=== PATIENT | female | born 1940 | race Two or more races ===

== ENCOUNTER 2020-08-05 08:11 | Emergency (ER) | payer OTHER ==
[~2020-08-05] VITALS: Ht 162.6 cm; Wt 90.7 kg
[2020-08-05] MEDS ORDERED: SYNTHROID137 MCG PO (08:33)
[2020-08-05] MEDS ORDERED: TRIBENZOR 40-51 EACH PO (08:34)
[2020-08-05] MEDS ORDERED: HYDROCHLOROTH12.5 MG PO (08:35)
[2020-08-05] MEDS ORDERED: ACETAMINOPHEN650 M2 PO (20:19)
== END 2020-08-05 20:30 | disposition home or self-care (01) ==
LOC: ER 08:11
DX: N39.0 Urinary tract infection, site not specified (principal); R31.29 Other microscopic hematuria; R82.71 Bacteriuria; D72.828 Other elevated white blood cell count; K80.80 Other cholelithiasis without obstruction; K76.0 Fatty (change of) liver, not elsewhere classified; R42 Dizziness and giddiness; M62.81 Muscle weakness (generalized); Z03.818 Encounter for observation for suspected exposure to other biological agents ruled out

== ENCOUNTER 2020-09-04 08:28 | Outpatient (CLI) | payer OTHER ==
[~2020-09-04 08:28] MED LIST: ACETAMINOPHEN650 M2 PO; HYDROCHLOROTH12.5 MG PO; SYNTHROID137 MCG PO; TRIBENZOR 40-51 EACH PO
== END 2020-09-04 09:29 | disposition home or self-care (01) ==
LOC: TOM 08:28
PROVIDERS: ATTEND Colon & Rectal Surgery
DX: Q61.8 Other cystic kidney diseases (principal); K80.80 Other cholelithiasis without obstruction
CPT/HCPCS: 74177; Q9965

== ENCOUNTER 2020-09-11 09:56 | Outpatient (CLI) | payer OTHER | END 2020-09-11 10:02 | disposition home or self-care (01) | LOC: NUCLEAR 09:56 | PROVIDERS: ATTEND Colon & Rectal Surgery | DX: I87.003 Postthrombotic syndrome without complications of bilateral lower extremity (principal); K81.9 Cholecystitis, unspecified; I73.9 Peripheral vascular disease, unspecified | CPT/HCPCS: 78227; 93922; 93925; A9537; J2805 ==

== ENCOUNTER 2020-09-16 11:14 | Outpatient (CLI) | payer OTHER | END 2020-09-16 15:31 | disposition home or self-care (01) | LOC: NUCLEAR 11:14 | PROVIDERS: ATTEND Colon & Rectal Surgery | DX: I87.2 Venous insufficiency (chronic) (peripheral) (principal) ==

== ENCOUNTER 2022-03-07 18:33 | Inpatient (IN) | payer OTHER ==
[~2022-03-07] VITALS: Ht 162.6 cm; Wt 90.7 kg
[2022-03-09] MEDS ORDERED: MEMANTINE HCL5 MG (08:36)
[2022-03-09] MEDS ORDERED: MONTELUKAST SOD10 MG (08:36)
[2022-03-09] MEDS ORDERED: ROSUVASTATIN CAL5 MG (08:37)
[2022-03-09] MEDS ORDERED: DOXAZOSIN MESYLA4 MG (08:37)
[2022-03-09] MEDS ORDERED: LOSARTAN POTASS50 MG (08:37)
[2022-03-09] MEDS ORDERED: OXYBUTYNIN CHLOR5 MG (08:37)
[2022-03-09] MEDS ORDERED: ST. JOSEPH ASPI81 M2 (08:37)
[2022-03-09] MEDS ORDERED: OMEPRAZOLE40 MG (08:37)
[2022-03-09] MEDS ORDERED: METFORMIN HCL850 M1 (08:37)
== END 2022-03-11 18:28 | DRG 481 ==
LOC: ER 18:33 → SURH 22:12
PROVIDERS: Orthopaedic Surgery; ADMIT Internal Medicine; ATTEND Internal Medicine
PROC: 0QU707Z Supplement Left Upper Femur with Autologous Tissue Substitute, Open Approach (ICD-10-PCS; 2022-03-09)
PROC: 3E0F7SF Introduction of Other Gas into Respiratory Tract, Via Natural or Artificial Opening (ICD-10-PCS; 2022-03-09)
PROC: 0QS704Z Reposition Left Upper Femur with Internal Fixation Device, Open Approach (ICD-10-PCS; principal; 2022-03-09 12:00)
DX: S72.142A Displaced intertrochanteric fracture of left femur, initial encounter for closed fracture (principal); N39.0 Urinary tract infection, site not specified; D62 Acute posthemorrhagic anemia; B96.29 Other Escherichia coli [E. coli] as the cause of diseases classified elsewhere; G30.8 Other Alzheimer's disease; F02.80 Dementia in other diseases classified elsewhere, unspecified severity, without behavioral disturbance, psychotic disturbance, mood disturbance, and anxiety; I10 Essential (primary) hypertension; E11.9 Type 2 diabetes mellitus without complications; E03.9 Hypothyroidism, unspecified; W06.XXXA Fall from bed, initial encounter; Z20.822 Contact with and (suspected) exposure to COVID-19

== ENCOUNTER 2022-05-11 00:45 | Emergency (ER) | payer OTHER ==
[~2022-05-11] VITALS: Ht 162.6 cm; Wt 95.3 kg
[~2022-05-11 00:45] MED LIST changes: +DOXAZOSIN MESYLA4 MG; +LOSARTAN POTASS50 MG; +MEMANTINE HCL5 MG; +METFORMIN HCL850 M1; +MONTELUKAST SOD10 MG; +OMEPRAZOLE40 MG; +OXYBUTYNIN CHLOR5 MG; +ROSUVASTATIN CAL5 MG; +ST. JOSEPH ASPI81 M2
[2022-05-11] MEDS ORDERED: METFORMIN HCL1000 M2 (01:04)
[2022-05-11] MEDS ORDERED: PEPCID40 MG PO (07:53)
[2022-05-11] MEDS ORDERED: DOLOGESIC-DF 51 EACH PO (07:53)
[2022-05-11] MEDS ORDERED: ZOFRAN8 MG PO (07:53)
== END 2022-05-11 07:58 ==
LOC: ER 00:45
DX: K52.9 Noninfective gastroenteritis and colitis, unspecified (principal); I10 Essential (primary) hypertension; E11.9 Type 2 diabetes mellitus without complications; Z79.84 Long term (current) use of oral hypoglycemic drugs

== ENCOUNTER 2022-07-02 14:59 | Outpatient (CLI) | payer OTHER ==
[~2022-07-02 14:59] MED LIST changes: +DOLOGESIC-DF 51 EACH PO; +METFORMIN HCL1000 M2; +PEPCID40 MG PO; +ZOFRAN8 MG PO
== END 2022-07-02 15:52 | disposition home or self-care (01) ==
LOC: RAD 14:59
PROVIDERS: ATTEND Orthopaedic Surgery
DX: S72.142D Displaced intertrochanteric fracture of left femur, subsequent encounter for closed fracture with routine healing (principal); M54.50 Low back pain, unspecified